=== PATIENT | female | born 1960 | race Caucasian/White ===

== ENCOUNTER 2020-01-17 16:12 | Emergency (ER) | payer MEDICARE, SELFPAY ==
[2020-01-17 16:37] VITALS: BP 190/119; PULSE 113; RESP 16; TEMP 36.9; O2SAT 98; BMI 28.6
--- NOTE | 2020-01-17 16:54 | XR_ITS ---
WS: [id number] Portable AP upright chest, 01/17/2020 Clinical Data: cp Comparison: None. Findings: No nodules, masses or effusions are seen. The heart is normal. The pulmonary vascularity is not increased. No pneumonia or pneumothorax is seen. XR/XR chest 1V portable [id number] Impression: Negative chest.
--- NOTE | 2020-01-17 16:54 | ECG_ITS ---
Measurements Intervals [place] Rate: 101 P: 60 CA: 156 QRS: 53 QRSD: 91 T: 53 QT: 343 QTc: 446 SINUS TACHYCARDIA ABNORMAL RHYTHM ECG No previous ECG available for comparison Electronically Signed On 01-17-2020 19:35:05 CDT by Sergio Day M.D. [email or web address]
[2020-01-17 17:02] VITALS: RESP 17; O2SAT 94
--- NOTE | 2020-01-17 17:02 | ED_ITS ---
Entered by Didi Corbin, acting as scribe for Jason Dunham DO Jan 17, 2020 16:12 Documented by User: Ming Bautista MD 01/17/20 19:26 HPI - Chest Pain General: Chief Complaint: Abdominal Pain Stated Complaint: n/v, high bp Time Seen by Provider: 01/17/20 17:02 PFSH ED PFSH: Social History Smoking and tobacco status: never smoked Course Vital Signs: Vital signs: Vital Signs Temperature 98.4 F 01/17/20 16:37 Pulse Rate 99 01/17/20 19:13 Respiratory Rate 18 01/17/20 19:13 Blood Pressure 168/94 01/17/20 19:13 Pulse Oximetry 97 01/17/20 19:13 MDM - Chest Pain MDM Narrative: Medical decision making narrative: Patient presents with abdominal pain. Her pain is much improved here in her CT scan is normal. Patient is stable for discharge. We will start her on Bentyl and she is to follow-up with her primary care doctor in 3 to 5 days return if worsening. Lab Data: Labs: Lab Results 01/17/20 01/17/20 01/17/20 Range/Units 17:15 17:15 17:15 WBC 11.6 H (4.0-10.0) 10^3/ uL RBC 5.19 (4.1-5.3) 10^6/u L Hgb 15.1 (11.5-15.3) g/dL Hct 44.5 (37.0-47.0) % MCV 85.7 (81-99) fL MCH 29.1 (28.0-34.0) pg MCHC 33.9 (30.0-36.0) g/dL RDW 12.0 L (12.1-15.1) % Plt Count 288 (130-400) 10^3/c mm MPV 9.1 (7.4-10.4) fL Neut % (Auto) 83.7 % Lymph % (Auto) 10.0 % [place] % (Auto) 5.2 % Eos % (Auto) 0.5 % Baso % (Auto) 0.3 % Neut # (Auto) 9.7 H (1.8-7.7) 10^3/u L Lymph # (Auto) 1.2 (0.8-4.8) 10^3/u L [place] # (Auto) 0.6 (0.2-0.9) 10^3/u L Eos # (Auto) 0.1 (0.0-0.8) 10^3/u L Baso # (Auto) 0.0 (0.0-0.1) 10^3/u L Nucleated RBC % (a uto) 0 % Nucleated RBCs # 0.0 /100WBC Sodium 139 (136-145) mmol/L Potassium 3.7 (3.5-5.1) mmol/L Chloride 102 (98-107) mmol/L Carbon Dioxide 25 (22-29) mmol/L Anion Gap 15.7 (5-19) BUN 27 H (8-23) mg/dL Creatinine 0.8 (0.5-0.9) mg/dL GFR Calculation 72.9 L (90-130) mL/min Glucose 119 H (65-115) mg/dL Calculated Osmolal ity 286 (285-295) mOsm/k g Calcium 9.5 (8.5-10.5) mg/dL Total Bilirubin 0.4 (0.15-1.2) mg/dL AST 23 (0-32) U/L ALT 27 (0-33) U/L Alkaline Phosphata se 71 (35-105) IU/L Troponin T Baselin e 6 (0-10) ng/mL Troponin T 120 Min solomon (0-10) ng/mL Delta Troponin T (0-10) ABS# Total Protein 7.2 (6.6-8.7) g/dL Albumin 4.6 (3.5-5.2) g/dL Globulin 2.6 (1.3-4.6) g/dL Lipase 20 (13-60) U/L Urine Color (Yellow) Urine Appearance (CLEAR) Urine pH (5-7) Ur Specific Gravit y (1.005-1.030) Urine Protein (Negative) Urine Glucose (UA) (Normal) Urine Ketones (Negative) Urine Blood (Negative) Urine Nitrate (Negative) Urine Bilirubin (NEGATIVE) Urine Urobilinogen (Negative) mg/dL Ur Leukocyte Mary ase (Negative) Urine RBC (0-2) /hpf Urine WBC (0-5) /hpf Ur Squamous Epith Cells (0-5) Urine Bacteria (NONE) Urine Mucus 03/11/20 03/11/20 Range/Units 17:20 18:29 WBC (4.0-10.0) 10^3/ uL RBC (4.1-5.3) 10^6/u L Hgb (11.5-15.3) g/dL Hct (37.0-47.0) % MCV (81-99) fL MCH (28.0-34.0) pg MCHC (30.0-36.0) g/dL RDW (12.1-15.1) % Plt Count (130-400) 10^3/c mm MPV (7.4-10.4) fL Neut % (Auto) % Lymph % (Auto) % [place] % (Auto) % Eos % (Auto) % Baso % (Auto) % Neut # (Auto) (1.8-7.7) 10^3/u L Lymph # (Auto) (0.8-4.8) 10^3/u L [place] # (Auto) (0.2-0.9) 10^3/u L Eos # (Auto) (0.0-0.8) 10^3/u L Baso # (Auto) (0.0-0.1) 10^3/u L Nucleated RBC % (a uto) % Nucleated RBCs # /100WBC Sodium (136-145) mmol/L Potassium (3.5-5.1) mmol/L Chloride (98-107) mmol/L Carbon Dioxide (22-29) mmol/L Anion Gap (5-19) BUN (8-23) mg/dL Creatinine (0.5-0.9) mg/dL GFR Calculation (90-130) mL/min Glucose (65-115) mg/dL Calculated Osmolal ity (285-295) mOsm/k g Calcium (8.5-10.5) mg/dL Total Bilirubin (0.15-1.2) mg/dL AST (0-32) U/L ALT (0-33) U/L Alkaline Phosphata se (35-105) IU/L Troponin T Baselin e (0-10) ng/mL Troponin T 120 Min solomon 6.00 (0-10) ng/mL Delta Troponin T 0 (0-10) ABS# Total Protein (6.6-8.7) g/dL Albumin (3.5-5.2) g/dL Globulin (1.3-4.6) g/dL Lipase (13-60) U/L Urine Color Yellow (Yellow) Urine Appearance Sl hazy (CLEAR) Urine pH 5 (5-7) Ur Specific Gravit y 1.025 (1.005-1.030) Urine Protein Neg (Negative) Urine Glucose (UA) Norm (Normal) Urine Ketones 1+ H (Negative) Urine Blood Neg (Negative) Urine Nitrate Negative (Negative) Urine Bilirubin Neg (NEGATIVE) Urine Urobilinogen Norm (Negative) mg/dL Ur Leukocyte Mary ase 1+ H (Negative) Urine RBC 0-4 H (0-2) /hpf Urine WBC 25-40 H (0-5) /hpf Ur Squamous Epith Cells 15-25 H (0-5) Urine Bacteria 1+ H (NONE) Urine Mucus 1+ Imaging Data^: CT Abd/Pel: Radiologist's impression: [place] [address] CT Scan Report Signed Patient: Alda Templeton Unit #: [id number] : 1960 Acct#:[id number] Age/Sex: 59 / F ADM Date: 01/17/20 Loc: ER Room/Bed: Attending Dr: Ordering Provider/Ordering MD: Jason Dunham DO Date of Service: 01/17/20 Procedure(s): CT abdomen pelvis w con* [id number] Accession Number(s): [id number] Report Number: [id number] PROCEDURE INFORMATION: Exam: CT Abdomen And Pelvis With Contrast Exam date and time: 01/17/2020 6:00 PM Age: 59 years old Clinical indication: Abdominal pain; Generalized; Additional info: Abd pain TECHNIQUE: Imaging protocol: Computed tomography of the abdomen and pelvis with intravenous contrast. Total DLP: 909.83 mGy-cm Radiation optimization: All CT scans at this facility use at least one of these dose optimization techniques: automated exposure control; mA and/or kV adjustment per patient size (includes targeted exams where dose is matched to clinical indication); or iterative reconstruction. Contrast material: OMNI 300; Contrast volume: 95 ml; Contrast route: LT AC; COMPARISON: CT abdomen pelvis w con* [id number] 06/25/2015 2:14 PM FINDINGS: Lungs: Mild atelectasis. Liver: Normal. No mass. Gallbladder and bile ducts: Normal. No calcified stones. No ductal dilation. Pancreas: Normal. No ductal dilation. Spleen: Normal. No splenomegaly. Adrenals: Normal. No mass. Kidneys and ureters: Normal. No hydronephrosis. Stomach and bowel: Diverticulosis of the descending and sigmoid colon without diverticulitis. The stomach and small bowel are unremarkable. Appendix: The appendix is normal. Intraperitoneal space: Unremarkable. No free air. No significant fluid collection. Vasculature: Unremarkable. No abdominal aortic aneurysm. Lymph nodes: Unremarkable. No enlarged lymph nodes. Bladder: Unremarkable as visualized. Reproductive: The uterus and ovaries are absent. Bones/joints: L2 vertebral body hemangioma. No compression fracture. Soft tissues: Unremarkable. CT/CT abdomen pelvis w con* [id number] IMPRESSION: 1. No acute abnormality identified in the abdomen or pelvis. 2. Diverticulosis of the distal colon. Discharge Plan Discharge Patient Disposition: Home, Self-Care Clinical Impression: Abdominal pain Qualifiers: Abdominal location: left lower quadrant Qualified Code(s): R10.32 - Left lower quadrant pain Condition: Stable Prescriptions: New Zofran 4 mg tablet 4 mg PO QID PRN (Reason: nausea and vomiting) Qty: 14 RF: 0 dicyclomine 20 mg tablet 20 mg PO PRN Qty: 20 RF: 0 No Action lisinopril 20 mg Tablet 20 mg PO BID RF: 0 amlodipine 5 mg Tablet 5 mg PO DAILY RF: 0 alprazolam 0.5 mg Tablet 0.5 mg PO BID RF: 0 Multiple Vitamin, Womens Tablet 1 tab PO DAILY RF: 0 Fiber (psyllium husk) 0.52 gram Capsule 0.52 g PO DAILY RF: 0 metoprolol tartrate 25 mg Tablet 25 mg PO BID RF: 0 Probiotic Blend 2 billion cell-50 mg Capsule 1 cap PO DAILY RF: 0 Discharge Orders: Discharge Order (Routine); Ordered 01/17/20 Ordered By: Ming Bautista Referrals: Jeremy Lee Jr, MD [Family Provider] - 1-3 days Discharge Diet: Advance as tolerated Discharge Activity: Resume usual activity Patient Instructions: Abdominal Pain (ED) Discharge Date/Time: 01/17/20 19:13 Coding Level of Care Code 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 pt states this started 2 days ago. pt had nausea and vomiting on Wednesday. pt denies any other symptoms at this time. MD complaint: other (nausea, vomiting, abdomen pain) Onset (ago): day(s) (2 days ago) Timing of current episode: still present Prior episodes: Yes Onset: during rest Pain location: epigastric Pain radiation: none Severity: moderate Quality: sharp Relieving factors: nothing Exacerbating factors: other (sitting upright) Associated symptoms: Reports abdominal pain, nausea and vomiting; Deny dyspnea or fever(s) Treatment prior to arrival: none Review of Systems Const: Denies: fever, chills, body aches, change in appetite, fatigue or malaise ENMT: Denies: throat pain, ear pain, nasal discharge or nasal congestion Card: Denies: chest pain, edema, shortness of breath on exertion or shortness of breath when lying down Resp: Denies: shortness of breath, productive cough or non-productive cough GI: Reports: abdominal pain, nausea and vomiting Skin/Breast: Denies: rash or itching PFSH ED PFSH: Social History Smoking and tobacco status: never smoked Physical Exam Const: COMMON NORMALS: no apparent distress GENERAL APPEARANCE: cooperative and comfortable ORIENTATION/CONSCIOUSNESS: Yes awake, Yes oriented to person, Yes oriented to place and Yes oriented to time HENMT: COMMON NORMALS: normocephalic, head/scalp atraumatic, hearing grossly normal bilaterally, external ears normal, EAC's normal, TM's normal bilaterally, nasal mucous membranes and turbinates normal, moist oral mucous membranes and oropharynx normal HEAD & SCALP: normocephalic and atraumatic NOSE: nasal mucous membranes and turbinates normal EXTERNAL EAR: Yes external ears normal EXTERNAL AUDITORY CANAL: EAC's normal TYMPANIC MEMBRANE: TM's normal bilaterally Eye: COMMON NORMALS: PERRL, EOMs intact bilaterally, conjunctivae normal and no scleral icterus CONJUNCTIVA: Yes conjunctivae normal PUPIL: Yes PERRL Neck/C-Spine: COMMON NORMALS: full ROM, no lymphadenopathy, supple and no JVD Lymph: LYMPHATIC: no lymphadenopathy noted and no lymphedema noted Resp: COMMON NORMALS: normal respiratory effort, no retractions, no use of accessory muscles and clear to auscultation bilaterally AUSCULTATION: clear to auscultation bilaterally Cardio: COMMON NORMALS: no JVD, regular rate, regular rhythm and no murmurs RATE: regular rate RHYTHM: regular rhythm Extremity: COMMON NORMALS: normal to inspection, normal capillary refill, no clubbing, cyanosis or edema, no calf tenderness and no pedal edema Neuro: SENSORIUM/ORIENTATION: Yes oriented to person, Yes oriented to place and Yes oriented to time Skin: COMMON NORMALS: no rashes or lesions noted GENERAL SKIN EXAM: no rashes or lesions noted Course ED course: CT pending with left lower quadrant abdominal pain care transferred to Dr. Bautista at change of shift. Vital Signs: Vital signs: Vital Signs Temperature 98.4 F 01/17/20 16:37 Pulse Rate 99 01/17/20 19:13 Respiratory Rate 18 01/17/20 19:13 Blood Pressure 168/94 01/17/20 19:13 Pulse Oximetry 97 01/17/20 19:13 MDM - Chest Pain Lab Data: Labs: Lab Results 01/17/20 01/17/20 01/17/20 Range/Units 17:15 17:15 17:15 WBC 11.6 H (4.0-10.0) 10^3/ uL RBC 5.19 (4.1-5.3) 10^6/u L Hgb 15.1 (11.5-15.3) g/dL Hct 44.5 (37.0-47.0) % MCV 85.7 (81-99) fL MCH 29.1 (28.0-34.0) pg MCHC 33.9 (30.0-36.0) g/dL RDW 12.0 L (12.1-15.1) % Plt Count 288 (130-400) 10^3/c mm MPV 9.1 (7.4-10.4) fL Neut % (Auto) 83.7 % Lymph % (Auto) 10.0 % [place] % (Auto) 5.2 % Eos % (Auto) 0.5 % Baso % (Auto) 0.3 % Neut # (Auto) 9.7 H (1.8-7.7) 10^3/u L Lymph # (Auto) 1.2 (0.8-4.8) 10^3/u L [place] # (Auto) 0.6 (0.2-0.9) 10^3/u L Eos # (Auto) 0.1 (0.0-0.8) 10^3/u L Baso # (Auto) 0.0 (0.0-0.1) 10^3/u L Nucleated RBC % (a uto) 0 % Nucleated RBCs # 0.0 /100WBC Sodium 139 (136-145) mmol/L Potassium 3.7 (3.5-5.1) mmol/L Chloride 102 (98-107) mmol/L Carbon Dioxide 25 (22-29) mmol/L Anion Gap 15.7 (5-19) BUN 27 H (8-23) mg/dL Creatinine 0.8 (0.5-0.9) mg/dL GFR Calculation 72.9 L (90-130) mL/min Glucose 119 H (65-115) mg/dL Calculated Osmolal ity 286 (285-295) mOsm/k g Calcium 9.5 (8.5-10.5) mg/dL Total Bilirubin 0.4 (0.15-1.2) mg/dL AST 23 (0-32) U/L ALT 27 (0-33) U/L Alkaline Phosphata se 71 (35-105) IU/L Troponin T Baselin e 6 (0-10) ng/mL Troponin T 120 Min solomon (0-10) ng/mL Delta Troponin T (0-10) ABS# Total Protein 7.2 (6.6-8.7) g/dL Albumin 4.6 (3.5-5.2) g/dL Globulin 2.6 (1.3-4.6) g/dL Lipase 20 (13-60) U/L Urine Color (Yellow) Urine Appearance (CLEAR) Urine pH (5-7) Ur Specific Gravit y (1.005-1.030) Urine Protein (Negative) Urine Glucose (UA) (Normal) Urine Ketones (Negative) Urine Blood (Negative) Urine Nitrate (Negative) Urine Bilirubin (NEGATIVE) Urine Urobilinogen (Negative) mg/dL Ur Leukocyte Mary ase (Negative) Urine RBC (0-2) /hpf Urine WBC (0-5) /hpf Ur Squamous Epith Cells (0-5) Urine Bacteria (NONE) Urine Mucus 01/17/20 01/17/20 Range/Units 17:20 18:29 WBC (4.0-10.0) 10^3/ uL RBC (4.1-5.3) 10^6/u L Hgb (11.5-15.3) g/dL Hct (37.0-47.0) % MCV (81-99) fL MCH (28.0-34.0) pg MCHC (30.0-36.0) g/dL RDW (12.1-15.1) % Plt Count (130-400) 10^3/c mm MPV (7.4-10.4) fL Neut % (Auto) % Lymph % (Auto) % [place] % (Auto) % Eos % (Auto) % Baso % (Auto) % Neut # (Auto) (1.8-7.7) 10^3/u L Lymph # (Auto) (0.8-4.8) 10^3/u L [place] # (Auto) (0.2-0.9) 10^3/u L Eos # (Auto) (0.0-0.8) 10^3/u L Baso # (Auto) (0.0-0.1) 10^3/u L Nucleated RBC % (a uto) % Nucleated RBCs # /100WBC Sodium (136-145) mmol/L Potassium (3.5-5.1) mmol/L Chloride (98-107) mmol/L Carbon Dioxide (22-29) mmol/L Anion Gap (5-19) BUN (8-23) mg/dL Creatinine (0.5-0.9) mg/dL GFR Calculation (90-130) mL/min Glucose (65-115) mg/dL Calculated Osmolal ity (285-295) mOsm/k g Calcium (8.5-10.5) mg/dL Total Bilirubin (0.15-1.2) mg/dL AST (0-32) U/L ALT (0-33) U/L Alkaline Phosphata se (35-105) IU/L Troponin T Baselin e (0-10) ng/mL Troponin T 120 Min solomon 6.00 (0-10) ng/mL Delta Troponin T 0 (0-10) ABS# Total Protein (6.6-8.7) g/dL Albumin (3.5-5.2) g/dL Globulin (1.3-4.6) g/dL Lipase (13-60) U/L Urine Color Yellow (Yellow) Urine Appearance Sl hazy (CLEAR) Urine pH 5 (5-7) Ur Specific Gravit y 1.025 (1.005-1.030) Urine Protein Neg (Negative) Urine Glucose (UA) Norm (Normal) Urine Ketones 1+ H (Negative) Urine Blood Neg (Negative) Urine Nitrate Negative (Negative) Urine Bilirubin Neg (NEGATIVE) Urine Urobilinogen Norm (Negative) mg/dL Ur Leukocyte Mary ase 1+ H (Negative) Urine RBC 0-4 H (0-2) /hpf Urine WBC 25-40 H (0-5) /hpf Ur Squamous Epith Cells 15-25 H (0-5) Urine Bacteria 1+ H (NONE) Urine Mucus 1+ Discharge Plan Discharge Patient Disposition: Home, Self-Care Clinical Impression: Abdominal pain Qualifiers: Abdominal location: left lower quadrant Qualified Code(s): R10.32 - Left lower quadrant pain Condition: Stable Prescriptions: New Zofran 4 mg tablet 4 mg PO QID PRN (Reason: nausea and vomiting) Qty: 14 RF: 0 dicyclomine 20 mg tablet 20 mg PO PRN Qty: 20 RF: 0 No Action lisinopril 20 mg Tablet 20 mg PO BID RF: 0 amlodipine 5 mg Tablet 5 mg PO DAILY RF: 0 alprazolam 0.5 mg Tablet 0.5 mg PO BID RF: 0 Multiple Vitamin, Womens Tablet 1 tab PO DAILY RF: 0 Fiber (psyllium husk) 0.52 gram Capsule 0.52 g PO DAILY RF: 0 metoprolol tartrate 25 mg Tablet 25 mg PO BID RF: 0 Probiotic Blend 2 billion cell-50 mg Capsule 1 cap PO DAILY RF: 0 Discharge Orders: Discharge Order (Routine); Ordered 01/17/20 Ordered By: Ming Bautista Referrals: Jeremy Lee Jr, MD [Family Provider] - 1-3 days Discharge Diet: Advance as tolerated Discharge Activity: Resume usual activity Patient Instructions: Abdominal Pain (ED) Discharge Date/Time: 01/17/20 19:13 Coding Level of Care Code ED Aer[employer]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
[2020-01-17] MEDS: ondansetron 2 mg/ML SDV 2 mL 4 MG IVP (17:14)
[2020-01-17] MEDS: sodium chloride 0.9% 500 ML 999 ML IV (17:14)
[2020-01-17 17:22] LABS: Basophils % 0.3 %; Eosinophils # 0.1 10^3/uL (0.0-0.8); Eosinophils % 0.5 %; Hematocrit 44.5 % (37.0-47.0); Hemoglobin 15.1 g/dL (11.5-15.3); Lymphocytes # 1.2 10^3/uL (0.8-4.8); Mean Corpuscular HGB Conc 33.9 g/dL (30.0-36.0); Mean Corpuscular Hemoglobin 29.1 pg (28.0-34.0); Mean Corpuscular Volume 85.7 fL (81-99); Mean Platelet Volume 9.1 fL (7.4-10.4); Monocytes # 0.6 10^3/uL (0.2-0.9); Monocytes % 5.2 %; Neutrophils # 9.7 10^3/uL (1.8-7.7); Neutrophils % 83.7 %; Nucleated Red Blood Cells % 0 %; Platelet Count 288 10^3/cmm (130-400); Red Blood Count 5.19 10^6/uL (4.1-5.3); White Blood Count 11.6 10^3/uL (4.0-10.0)
[2020-01-17 17:36] LABS: Alanine Aminotransferase 27 U/L (0-33); Albumin Level 4.6 g/dL (3.5-5.2); Alkaline Phosphatase 71 IU/L (35-105); Anion Gap 15.7 (5-19); Aspartate Amino Transferase 23 U/L (0-32); Blood Urea Nitrogen 27 mg/dL (8-23); Calcium 9.5 mg/dL (8.5-10.5); Carbon Dioxide 25 mmol/L (22-29); Chloride 102 mmol/L (98-107); Globulin 2.6 g/dL (1.3-4.6); Glomerular Filtration Rate 72.9 mL/min (90-130); Glucose 119 mg/dL (65-115); Lipase 20 U/L (13-60); Osmolality Calculated 286 mOsm/kg (285-295); Potassium 3.7 mmol/L (3.5-5.1); Sodium 139 mmol/L (136-145); Total Bilirubin 0.4 mg/dL (0.15-1.2); Total Protein 7.2 g/dL (6.6-8.7)
[2020-01-17 17:38] LABS: Troponin(5th) Baseline 6 ng/mL (0-10)
--- NOTE | 2020-01-17 17:45 | CTR_ITS ---
PROCEDURE INFORMATION: Exam: CT Abdomen And Pelvis With Contrast Exam date and time: 01/17/2020 6:00 PM Age: 59 years old Clinical indication: Abdominal pain; Generalized; Additional info: Abd pain TECHNIQUE: Imaging protocol: Computed tomography of the abdomen and pelvis with intravenous contrast. Total DLP: 909.83 mGy-cm Radiation optimization: All CT scans at this facility use at least one of these dose optimization techniques: automated exposure control; mA and/or kV adjustment per patient size (includes targeted exams where dose is matched to clinical indication); or iterative reconstruction. Contrast material: OMNI 300; Contrast volume: 95 ml; Contrast route: LT AC; COMPARISON: CT abdomen pelvis w con* [id number] 06/25/2015 2:14 PM FINDINGS: Lungs: Mild atelectasis. Liver: Normal. No mass. Gallbladder and bile ducts: Normal. No calcified stones. No ductal dilation. Pancreas: Normal. No ductal dilation. Spleen: Normal. No splenomegaly. Adrenals: Normal. No mass. Kidneys and ureters: Normal. No hydronephrosis. Stomach and bowel: Diverticulosis of the descending and sigmoid colon without diverticulitis. The stomach and small bowel are unremarkable. Appendix: The appendix is normal. Intraperitoneal space: Unremarkable. No free air. No significant fluid collection. Vasculature: Unremarkable. No abdominal aortic aneurysm. Lymph nodes: Unremarkable. No enlarged lymph nodes. Bladder: Unremarkable as visualized. Reproductive: The uterus and ovaries are absent. Bones/joints: L2 vertebral body hemangioma. No compression fracture. Soft tissues: Unremarkable. CT/CT abdomen pelvis w con* [id number] IMPRESSION: 1. No acute abnormality identified in the abdomen or pelvis. 2. Diverticulosis of the distal colon. Radiation Dose CTDIVOL = (mGy): DLP = 909.83 (mGy-cm)
[2020-01-17 17:57] VITALS: RESP 17; O2SAT 98
[2020-01-17] MEDS: morphine 4 mg/mL SDV 1 mL IVP (17:57)
[2020-01-17 18:07] LABS: Add Urine Microscopic? YES; Bilirubin Urine Neg (NEGATIVE); Blood Urine Neg (Negative); Glucose Urine UA Norm (Normal); Ketones Urine 1+ (Negative); Leukocyte Esterase Urine 1+ (Negative); Nitrate Urine Negative (Negative); Protein Urine Neg (Negative); Specific Gravity, Urine 1.025 (1.005-1.030); Urine Appearance SL Hazy (CLEAR); Urine Color Yellow (Yellow); Urobilinogen Urine Norm (Negative); pH Urine 5 (5-7)
[2020-01-17] MEDS: iohexol 300 mg/mL 100 mL Btl IV (18:11)
[2020-01-17] MEDS: sodium chloride 0.9% 1,000 ML 999 ML IV (18:17)
[2020-01-17 18:24] LABS: Bacteria Urine 1+; Mucus Urine 1+; RBC Urine 0-4 /hpf (0-2); Squamous Epithelial Cell Urine 15-25 (0-5); WBC Urine 25-40 /hpf (0-5)
--- NOTE | 2020-01-17 18:46 | PC.PHAR ---
PT ALSO TAKES BI-EST ()PROGES/DHEA 1 MG/100MG/2MG CAPSULES. I WAS UNABLE TO FIND THIS ON THE MEDICATION LIST IN OUR CHARTS.
[2020-01-17 19:03] LABS: Troponin 5 2HR Delta 0 ABS# (0-10)
[2020-01-17 19:13] VITALS: BP 168/94; PULSE 99; RESP 18; O2SAT 97
== END 2020-01-17 19:13 | disposition home or self-care (01) ==
PROVIDERS: Emergency Medicine; Family Medicine; Emergency Provider Emergency Medicine; Family Provider Family Medicine
DX: R10.9 Unspecified abdominal pain (principal)
CPT/HCPCS: 12345; 36415; 71045; 74177; 80053; 81001; 83690; 84484; 85025; 93005; 96361; 96374; 96375; 96376; 99283; 99284; J2270; J2405; J7030; J7040; Q9967

== ENCOUNTER → 2020-05-26 10:04 | Outpatient (BNVA) | payer MEDICARE, SELFPAY | PROVIDERS: Family Provider Family Medicine; Visit Provider Nurse Practitioner | DX: N39.0 Urinary tract infection, site not specified (principal) | CPT/HCPCS: 81000 ==

== ENCOUNTER 2020-09-06 10:04 | Outpatient (CLI) | payer MEDICARE, SELFPAY ==
--- NOTE | 2020-09-06 10:12 | MM_ITS ---
WS: [id number] Exam: [place] [id number] Date/Time of Exam: 09/06/2020 10:29 AM Reason For Exam: SCREENING VIEWS: MLO and CC views both breasts. Comparison made with prior exam of 07/24/2016. Findings: There was no sign of mass, architectural distortion or suspicious calcification in either breast. Het erogeneously dense MM/[id number] Impression: BI-RADS: 2-Benign FOLLOW-UP: 1 Year Follow-up This mammogram was also analyzed by the Computer Aided Detection System R2 Imag e Strategic Planning Manager.
== END 2020-09-06 10:05 | disposition home or self-care (01) ==
LOC: RADSHAW 10:10
PROVIDERS: PCP Nurse Practitioner Family; Visit Provider Nurse Practitioner Family
DX: Z12.31 Encounter for screening mammogram for malignant neoplasm of breast (principal)
CPT/HCPCS: 77067

== ENCOUNTER 2021-02-21 10:54 | Outpatient (CLI) | payer MEDICARE, SELFPAY ==
--- NOTE | 2021-02-21 11:04 | XR_ITS ---
WS: [id number] Left knee, 3 views standing, 02/21/2021 Clinical Data: ABNORMAL IMMUNOLOGICAL FINDINGS, PAIN RIGHT AND LEFT KNEE Comparison: None. Findings: No fractures or dislocations are seen. The joint spaces are normal. The patella is intact. The soft t issues are unremarkable. No bone destruction or erosion is seen. XR/XR knee LT 3V* [id number] Impression: Negative left knee.
--- NOTE | 2021-02-21 11:04 | XR_ITS ---
WS: [id number] Left hand, AP and PA views, 02/21/2021 Clinical Data: ABNORMAL IMMUNOLOGICAL FINDINGS, PAIN RIGHT AND LEFT WRIST Comparison: None. Findings: No fractures or dislocations are seen. The soft tissues are unremarkable. The joint spaces are normal No periarticular demineralization or calcifications are seen. The patient's ring obscures minimal det ail over the left fourth proximal phalanx of the hand. XR/XR hand LT 2V [id number] Impression: Negative left hand.
--- NOTE | 2021-02-21 11:04 | XR_ITS ---
WS: [id number] Right hand, AP and PA views, 02/21/2021 Clinical Data: ABNORMAL IMMUNOLOGICAL FINDINGS, PAIN RIGHT AND LEFT WRIST Comparison: None. Findings: No fractures or dislocations are seen. The soft tissues are unremarkable. The joint space s are normal No periarticular demineralization or calcifications are seen. XR/XR hand RT 2V [id number] Impression: Negative right hand.
--- NOTE | 2021-02-21 11:04 | XR_ITS ---
WS: [id number] Right knee, 3 views standing, 02/21/2021 Clinical Data: ABNORMAL IMMUNOLOGICAL FINDINGS, PAIN RIGHT AND LEFT KNEE Comparison: None. Findings: No fractures or dislocations are seen. The joint spaces are normal. The patella is intact. The soft t issues are unremarkable. No bone destruction or erosion is seen. XR/XR knee RT 3V* [id number] Impression: Negative right knee.
== END 2021-02-21 10:55 | disposition home or self-care (01) ==
PROVIDERS: PCP Nurse Practitioner Family; Visit Provider Internal Medicine Rheumatology
DX: R76.9 Abnormal immunological finding in serum, unspecified (principal); M25.562 Pain in left knee; M25.561 Pain in right knee; M25.532 Pain in left wrist; M25.531 Pain in right wrist
CPT/HCPCS: 73120; 73562

== ENCOUNTER 2021-03-07 07:45 | Outpatient (CLI) | payer MEDICARE, SELFPAY ==
--- NOTE | 2021-03-07 07:58 | CT_ITS ---
WS: [id number] CT HEAD TECHNIQUE: Noncontrast CT of the head obtained from the skullbase to the vertex. CLINICAL INFORMATION: HEADACHE, DIZZINESS AND GIDDINESS, OTHER FATIGUE COMPARISON: None. DLP: 925.[address] scans at [facility] use at least one of these dose optimization techniques: automat ed exposure control; mA and/or kV adjustment per patient size (includes targeted exams where dose is matched to clinical indication); or iterative reconstruction. FINDINGS: No evidence of intracranial hemorrhage or mass effect. Ventricular system and basal cisterns are torres nt. Mild small vessel changes with mild parenchymal volume loss. No extra-axial fluid collections. No evidence of mass or mass effect. Normal diaz-white differentiation. Paranasal sinuses and mastoid air cells are well aerated. .Normal visualized soft tissues. Cavernous carotid calcification. Ectatic lobulated right supraclinoid ICA measuring 3.8 mm. This may be inciden yara but can be further evaluated with CTA to exclude aneurysm. CT/CT head wo con* [id number] IMPRESSION: 1. No evidence of intracranial hemorrhage or mass effect. 2. Mild small vessel changes. Mild parenchymal volume loss. 3. Ectatic lobulated right supraclinoid ICA measuring 3.8 mm. This may be inci dental but can be further evaluated with CTA to exclude aneurysm. 4. No other significant findings.
== END 2021-03-07 07:46 | disposition home or self-care (01) ==
PROVIDERS: PCP Nurse Practitioner Family; Visit Provider Nurse Practitioner Family
DX: R51.9 Headache, unspecified (principal); R42 Dizziness and giddiness; R53.83 Other fatigue
CPT/HCPCS: 70450

== ENCOUNTER 2021-04-17 09:45 | Outpatient (CLI) | payer MEDICARE, SELFPAY ==
--- NOTE | 2021-04-17 09:59 | CT_ITS ---
WS: [id number] CTA HEAD TECHNIQUE: Contrast enhanced CTA of the head with coronal and sagittal reformatted images and maximum intensity projection (MIP) images. NASCET criteria utilized. CLINICAL INFORMATION: HEADACHE, FATIGUE, HYPERTENSION, ABNORMAL CT HEAD COMPARISON: CT March 07, 2021 DLP: 1360.[address] scans at [facility] use at least one of these dose optimization techniques: automat ed exposure control; mA and/or kV adjustment per patient size (includes targeted exams where dose is matched to clinical indication); or iterative reconstruction. FINDINGS: Mild small vessel changes. Mild parenchymal volume loss. No extra axial fluid collections. No evidence of mass or mass effect.Paranasal sinuses and mastoid air cells are well aerated. Persistent right trigeminal artery is patent. Right supraclinoid ICA aneurysm corresponding to the pr ior noncontrast CT findings measures 4.5 x 4.3 x 4.4 mm AP by transverse by craniocaudal. Distal vertebral arteries are patent. Small distal vertebral arteries and basilar artery with dominan t anterior circulation. Persistent patent right trigeminal artery. Both ICAs are patent at the skull base. Mild cavernous carotid calcification. Normal vascularity to t he KELLEY and MCA territories bilaterally. No evidence of flow-limiting stenosis. Patent anterior commun icating artery. Hypoplastic left A1 segment. Normal dural venous sinuses. CT/CT angio head [id number] IMPRESSION: 1. Right supraclinoid ICA aneurysm measuring 4.5 x 4.3 x 4.4 mm AP x transvers e x craniocaudal. 2. Persistent right trigeminal artery. 3. Distal vertebral arteries and basilar artery are small but patent with danni nant anterior circulation 4. Hypoplastic left A1 segment. 5. Otherwise normal intracranial CTA.
[2021-04-17 10:22] LABS: Blood Urea Nitrogen 15 mg/dL (8-23); Glomerular Filtration Rate 72.7 mL/min (90-130)
[2021-04-17] MEDS: iohexol 350 mg/mL 100 mL Btl IV (10:39)
== END 2021-04-17 09:46 | disposition home or self-care (01) ==
PROVIDERS: PCP Nurse Practitioner Family; Visit Provider Nurse Practitioner Family
DX: R53.83 Other fatigue (principal); R51.9 Headache, unspecified; I10 Essential (primary) hypertension; R93.0 Abnormal findings on diagnostic imaging of skull and head, not elsewhere classified
CPT/HCPCS: 70496; 82565; 84520; Q9967

== ENCOUNTER → 2021-05-27 13:40 | Outpatient (BNVA) | payer MEDICARE, SELFPAY | PROVIDERS: PCP Nurse Practitioner Family; Visit Provider Internal Medicine | DX: R76.8 Other specified abnormal immunological findings in serum (principal); M25.50 Pain in unspecified joint; M79.643 Pain in unspecified hand; Z79.899 Other long term (current) drug therapy; Z11.59 Encounter for screening for other viral diseases; R53.83 Other fatigue | CPT/HCPCS: 36415; 82306; 82310; 82533; 82607; 82728; 82784; 83516; 83540; 83735; 83970; 84100; 84439; 84443; 84550; 85651; 86140; 86160; 86162; 86235; 86255; 86376; 86617; 86704; 86803; 86812; 87340; 99204 ==

== ENCOUNTER 2023-11-23 14:18 | Outpatient (CLI) | payer MEDICARE, SELFPAY ==
--- NOTE | 2023-11-23 14:27 | XR_ITS ---
WS: [id number] Exam: XR cervical spine 4-5V [id number] Date/Time of Exam: 11/23/2023 2:30 PM Reason For Exam: RADICULOPATHY CERVICAL REGION No acute fracture or dislocation. 2 mm degenerative anterolisthesis of C5 on C6, C6 on C7, and C7 on T1. Facet DJD at all levels. Paraspinal soft tissues are unremarkable. The odontoid is intact. IMPRESSION: 1. 2 mm degenerative anterolisthesis of C5 on C6, C6 on C7, and C7 on T1 accentuated most in flexion. 2. Moderate facet arthropathy and degenerative change at all levels.
== END 2023-11-23 14:19 | disposition home or self-care (01) ==
LOC: RAD 14:19
PROVIDERS: PCP Nurse Practitioner Family; Visit Provider Nurse Practitioner Family
DX: M54.12 Radiculopathy, cervical region (principal)
CPT/HCPCS: 72050

== ENCOUNTER 2023-12-26 09:47 | Emergency (ER) | payer MEDICARE, SELFPAY ==
[2023-12-26 09:51] VITALS: BP 118/74; PULSE 68; RESP 14; TEMP 36.7; O2SAT 99; BMI 26.6
--- NOTE | 2023-12-26 10:20 | CTR_ITS ---
PROCEDURE INFORMATION: Exam: CT Head Without Contrast Exam date and time: 12/26/2023 10:50 AM Age: 63 years old Clinical indication: Pain; Other: Left-sided otitis media with mastoid tenderness to palpation; Prior surgery; Surgery date: 6+ months; Surgery type: Brain TECHNIQUE: Imaging protocol: Computed tomography of the head without contrast. Radiation optimization: All CT scans at this facility use at least one of these dose optimization techniques: automated exposure control; mA and/or kV adjustment per patient size (includes targeted exams where dose is matched to clinical indication); or iterative reconstruction. COMPARISON: CT angio head [id number] 04/17/2021 10:29 AM RADIATION DOSE METRICS: Total DLP (mGy-cm): 1078.08 FINDINGS: Brain: Normal. No hemorrhage. Unremarkable white matter. No mass effect. Cerebral ventricles: No ventriculomegaly. Paranasal sinuses: Visualized sinuses are unremarkable. No fluid levels. Mastoid air cells: There is partial opacification of the left mastoid air cells with left middle ear effusion. Partial opacification of the right mastoid air cells. Bones/joints: Unremarkable. No acute fracture. Soft tissues: Unremarkable. Vasculature: Aneurysm coils along the right supraclinoid ICA aneurysm. CT/CT head wo con* [id number] IMPRESSION: 1. Opacification of the left middle ear and partial opacification left mastoid air cells, related to otitis media. No intracranial collections. 2. No large territorial infarct or intracranial bleed.
--- NOTE | 2023-12-26 10:21 | W.ED.EAR ---
HPI - Ear Problem General: Chief complaint: Ear Stated complaint: L&R ear pain Time Seen by Provider: 12/26/23 10:15 History of Present Illness: 63-year-old female with a history of hypertension and anxiety who presents the emergency room with bilateral ear pain. Worse on the left than on the right. She has some tenderness behind her ear on the left. She had had some congestion and cough previous. She had seen her PCP this week and was placed on a Z-Jerry but has gotten worse rather than better she says. No fevers. She says she has decreased hearing in her left ear. Review of Systems Narrative: Constitutional symptoms: Negative except as documented in HPI. Skin symptoms: Negative except as documented in HPI. Eye symptoms: Negative except as documented in HPI. ENMT symptoms: Negative except as documented in HPI. Respiratory symptoms: Negative except as documented in HPI. Cardiovascular symptoms: Negative except as documented in HPI. Gastrointestinal symptoms: Negative except as documented in HPI. Genitourinary symptoms: Negative except as documented in HPI. Musculoskeletal symptoms: Negative except as documented in HPI. Neurologic symptoms: Negative except as documented in HPI. Psychiatric symptoms: Negative except as documented in HPI. Endocrine symptoms: Negative except as documented in HPI. [facility] ED PFSH: Medical History (Updated 12/26/23 @ 11:18 by Abigail Geller MD) Hand pain Arthralgia Fatigue Social History Smoking and tobacco/nicotine status: never used tobacco/nicotine Alcohol intake: never Physical Exam Narrative: EXAM NARRATIVE: General: Alert, no acute distress. Skin: warm and dry Head: Normocephalic Neck: Trachea midline Eye: Extraocular movements are intact. Ears, nose, mouth and throat: Oral mucosa moist, bilateral tympanic membrane erythema and bulging. Appears to be some pus behind the drum. She has some left tenderness behind her ear. Mild. Respiratory: Respirations are non-labored Musculoskeletal: Normal ROM Neurological: Alert and oriented to person, place, time, and situation, No focal neurological deficit observed. Psychiatric: Cooperative, appropriate mood & affect. Course Vital Signs: Vital signs: Vital Signs Temperature 98.1 F 12/26/23 09:51 Pulse Rate 68 12/26/23 09:51 Respiratory Rate 18 12/26/23 10:43 Blood Pressure 118/74 12/26/23 09:51 Pulse Oximetry 97 12/26/23 10:43 Oxygen Delivery Me thod Room Air 12/26/23 10:43 MDM - Ear Medical Decision Making Medical decision making: With loss of hearing and tenderness by the ear CT of the head was done to evaluate for mastoiditis. Escalating her antibiotics and giving some IV Rocephin here and home on Omnicef also adding in eardrops. CT head: Findings consistent with left otitis media. Some opacification of mastoid cells. Perhaps an early mild mastoiditis. No acute intracranial process. no intracranial hemorrhage, no evidence of infarct. no evidence of acute fracture.This was reviewed and interpreted by myself the ER physician. Reexamination: Patient remained stable. No increased work of breathing. No altered mental status. Lab Data Radiology Impressions Head CT 12/26/23 10:20 IMPRESSION: 1. Opacification of the left middle ear and partial opacification left mastoid air cells, related to otitis media. No intracranial collections. 2. No large territorial infarct or intracranial bleed. All radiology interpretation(s) finalized by discharge Other Data - IV Rocephin and IV Toradol in the emergency room. - Discharged home - Discussed plan with patient. Answered any questions. - Evaluation and treatment of this problem were appropriate in the emergency setting. Discharge Plan Discharge Patient Disposition: Home Clinical Impression: Bilateral acute otitis media Condition: Stable Prescriptions: New cefdinir 300 mg capsule 300 mg PO BID 10 Days Qty: 20 0RF diclofenac potassium 50 mg tablet 50 mg PO BID PRN (Reason: pain) Qty: 20 0RF prlzfysp-owswdxalo-YO 3.5-10,000-1 mg/mL-unit/mL-% drops,suspension 4 drp otic (ear) Q6H 10 Days Qty: 10 0RF No Action amlodipine 5 mg Tablet 5 mg PO DAILY psyllium husk [Fiber (psyllium husk)] 0.52 gram Capsule 0.52 g PO DAILY Probiotic Blend 2 billion cell-50 mg Capsule 1 cap PO DAILY multivitamin Tablet 1 tab PO QPM Aspir-81 81 mg Tablet,Delayed Release (Dr/Ec) 81 mg PO QPM alprazolam 0.25 mg tablet 0.25 mg PO Q8H PRN (Reason: Anxiety) losartan 50 mg tablet 75 mg PO DAILY atorvastatin 10 mg tablet 10 mg PO QPM citalopram 10 mg tablet 10 mg PO DAILY ofloxacin 0.3 % drops 5 drp otic (ear) BID famotidine 20 mg tablet 20 mg PO DAILY lipsdudymb-fmsvejl-kgojoyft 50-325-40 mg capsule 1 cap PO Q6H PRN (Reason: Headache) hydrochlorothiazide 25 mg tablet 25 mg PO DAILY fluticasone propionate 50 mcg/actuation spray,suspension 1 spray INTRANASAL BID metoprolol tartrate 25 mg tablet 25 mg PO BID Zepbound 2.5 mg/0.5 mL pen injector 2.5 mg SUBCUT Q7D Discharge Orders: Discharge ED (Routine); Ordered 12/26/23 Ordered By: Abigail Geller Referrals: Soumya Wahl [employer] [Primary Care Provider] - (You have been screened and evaluated and felt safe for discharge. Health conditions do change or evolve sometimes and as such it is important that you follow up with your Primary Doctor to be re checked, 3-5 days is a general good time frame for follow up. You are always welcome to return to the ED for re assessment if your symptoms are worsening or you have new concerns) Patient Instructions: Otitis Media - Adult, Opioid Safety, Pain Management Coding Level of Care Code ED Basket Weaver for Hattie Catalan
[2023-12-26] MEDS: ketorolac 30 mg/mL INJ IVP (10:35)
[2023-12-26 10:43] VITALS: RESP 18; O2SAT 97
[2023-12-26] MEDS: cefTRIAXone 1,000 MG in sodium chloride 0.9% (plus) 50 ML 100 MG IV (11:03)
== END 2023-12-26 11:51 | disposition home or self-care (01) ==
PROVIDERS: Emergency Provider Emergency Medicine; PCP Nurse Practitioner Family
DX: H66.93 Otitis media, unspecified, bilateral (principal); Z79.82 Long term (current) use of aspirin
CPT/HCPCS: 70450; 96374; 96375; 99285; J0696; J1885

== ENCOUNTER 2024-03-08 13:03 | Outpatient (CLI) | payer MEDICARE, SELFPAY ==
--- NOTE | 2024-03-08 13:14 | XR_ITS ---
WS: [id number] SCREENING DEXA SCAN [employer] CLINICAL INFORMATION: ASYMPTOMATIC MENOPAUSAL STATE COMPARISON: None. FINDINGS: The L1-L4 bone mineral density measures 0.994 g/cm2. This corresponds to a T score score of -1.5 and Z score of -0.3. Left femoral neck bone mineral density measures 0.899 g/cm2. This corresponds to a T score of -0.9 an d Z score of 0.1. Right femoral neck bone mineral density measures 0.992 g/cm2. This corresponds to a T score -0.1of an d Z score of 0.9. Mean femoral neck bone mineral density measures 0.946 g/cm2. This corresponds to a T score of -0.5 an d Z score of 0.5. XR/XR DEXA axial skeleton* [id number] IMPRESSION: Osteopenia lumbar spine. Normal bone mineralization femoral necks. Patient's FRAX calculated 10 year probability for major osteoporotic fracture i s 9.3% and osteoporotic hip fracture is 1.1%.
--- NOTE | 2024-03-08 13:14 | MM_ITS ---
WS: [id number] BILATERAL 3D TOMOSYNTHESIS DIGITAL SCREENING MAMMOGRAPHY WITH CAD CLINICAL INFORMATION: SCREENING HISTORY: Screening mammogram. No current complaints. COMPARISON: 2020 TECHNIQUE: Bilateral CC and MLO views. FINDINGS: The breasts are composed of heterogeneous fibroglandular density tissue, which can limit the detectio n of small underlying mass lesions. No suspicious mass, asymmetry, calcifications, or architectural d istortion. No evidence of malignancy. Stable dense nodular breast tissue upper outer breasts sofya gilliland MM/[place] [id number] IMPRESSION: BI-RADS: 2-Benign FOLLOW UP: 1 Year Follow-up Recommend return to annual screening mammography..
== END 2024-03-08 13:04 | disposition home or self-care (01) ==
LOC: RAD 13:03
PROVIDERS: PCP Nurse Practitioner Family; Visit Provider Nurse Practitioner Family
DX: Z12.31 Encounter for screening mammogram for malignant neoplasm of breast (principal); Z78.0 Asymptomatic menopausal state; Z13.820 Encounter for screening for osteoporosis; R92.323 Mammographic fibroglandular density, bilateral breasts; M85.88 Other specified disorders of bone density and structure, other site
CPT/HCPCS: 77063; 77067; 77080

== ENCOUNTER 2024-11-20 12:10 | Outpatient (CLI) | payer MEDICARE, SELFPAY ==
--- NOTE | 2024-11-20 12:16 | XR_ITS ---
WS: [id number] XR hip LT 2-3V wo/w pel* [id number] REASON FOR EXAM: left hip pain FINDINGS: No acute fracture or periosteal reaction. Mild to moderate narrowing of the posterior inferior joint space with mild acetabular subchondral scl erosis and osteophytosis. Mild narrowing of the anterior superior joint space with mild acetabular subchondral sclerosis and os teophytosis. XR/XR hip LT 2-3V wo/w pel* [id number] IMPRESSION: Mild osteoarthritis of the left hip as above.
--- NOTE | 2024-11-20 12:16 | XR_ITS ---
WS: [id number] XR shoulder RT min 2V* [id number] REASON FOR EXAM: right shoulder pain FINDINGS: No fracture or focal bone lesion. Mild narrowing in the acromioclavicular joint with moderate subchondral sclerosis and osteophytosis. The glenohumeral joint space is not clearly demonstrated on the examination. There is mild subchondra l sclerosis of the glenoid and moderate osteophytosis of the humeral head. Large calcified loose bodies are identified in the subcoracoid bursa. There also appears to be a loos e body in the axillary pouch of the glenohumeral joint. Mild sclerosis and cystic change of the greater biceps tuberosity XR/XR shoulder RT min 2V* [id number] IMPRESSION: Moderate osteoarthritis of the acromioclavicular joint. Significant osteoarthritis of the glenohumeral joint, joint space loss not eval uated. Large loose bodies within the subcoracoid bursa and a loose body within the axi llary pouch the glenohumeral joint.
== END 2024-11-20 12:11 | disposition home or self-care (01) ==
LOC: RAD 12:12
PROVIDERS: PCP Nurse Practitioner Family; Visit Provider Nurse Practitioner Family
DX: M16.12 Unilateral primary osteoarthritis, left hip (principal); M25.752 Osteophyte, left hip; R93.89 Abnormal findings on diagnostic imaging of other specified body structures; M19.011 Primary osteoarthritis, right shoulder; R93.6 Abnormal findings on diagnostic imaging of limbs; M25.711 Osteophyte, right shoulder
CPT/HCPCS: 73030; 73502

== ENCOUNTER → 2025-07-30 09:51 | Outpatient (BNVA) | payer MEDICARE, SELFPAY | PROVIDERS: PCP Nurse Practitioner Family; Referring Provider Nurse Practitioner Family; Visit Provider Nurse Practitioner Family | DX: W89.1XXA Exposure to tanning bed, initial encounter (principal); L72.0 Epidermal cyst; L57.8 Other skin changes due to chronic exposure to nonionizing radiation; L81.4 Other melanin hyperpigmentation | CPT/HCPCS: 99204 ==